=== PATIENT | male | born 1985 | race African-American/Black ===

== ENCOUNTER 2021-06-13 02:25 | Emergency (ER) | payer SELFPAY ==
[~2021-06-13] VITALS: Ht 195.6 cm; Wt 90.0 kg
[2021-06-13 02:50] VITALS: BP 147/64
[2021-06-13] MEDS ORDERED: SULF1TAB24 PO (02:58)
--- NOTE | 2021-06-13 02:58 | PHYS DOC ---
General Adult EDM: Chief Complaint: ABSCESS HPI: HPI: 36-year-old male presents with abscess of the left upper lip. For the last 2 days, this has been getting larger. He has had some drainage but not very much. Patient's never had an abscess before. He has no other complaints this time. Review of Systems: Review of Systems: Constitutional: Denies fever or chills Eyes: Denies change in visual acuity HENT: Denies nasal congestion or sore throat Respiratory: Denies cough or shortness of breath Cardiovascular: Denies chest pain or edema GI: Denies abdominal pain, nausea, vomiting, bloody stools or diarrhea : Denies dysuria Musculoskeletal: Denies back pain or joint pain Integument: Abscess Neurologic: Denies headache, focal weakness or sensory changes Endocrine: Denies polyuria or polydipsia Lymphatic: Denies swollen glands Psychiatric: Denies depression or anxiety Allergies: Allergies: Allergies Coded Allergies Type Severity Reaction Last Updated Verified No Known Drug Allergies 06/13/21 No Physical Exam: PE: Constitutional: Well developed, well nourished, no acute distress, non-toxic appearance. [] HENT: Normocephalic, atraumatic, bilateral external ears normal, oropharynx moist, no oral exudates, nose normal. [] Eyes: PERRLA, EOMI, conjunctiva normal, no discharge. [] Neck: Normal range of motion, no tenderness, supple, no stridor. [] Cardiovascular:Heart rate regular rhythm, no murmur [] Lungs & Thorax: Bilateral breath sounds clear to auscultation [] Abdomen: Bowel sounds normal, soft, no tenderness, no masses, no pulsatile masses. [] Skin: 1 cm erythematous warm area of the left upper lip with draining abscess and scabbing [] Back: No tenderness, no CVA tenderness. [] Extremities: No tenderness, no cyanosis, no clubbing, ROM intact, no edema. [] Neurologic: Alert and oriented X 3, normal motor function, normal sensory function, no focal deficits noted. [] Psychologic: Affect normal, judgement normal, mood normal. [] EKG: EKG: [] Radiology/Procedures: Radiology/Procedures: [] Heart Score: C/O Chest Pain: N/A Risk Factors: Risk Factors: DM, Current or recent (<one month) smoker, HTN, HLP, family history of CAD, obesity. Risk Scores: Score 0 - 3: 2.5% MACE over next 6 weeks - Discharge Home Score 4 - 6: 20.3% MACE over next 6 weeks - Admit for Clinical Observation Score 7 - 10: 72.7% MACE over next 6 weeks - Early Invasive Strategies Course & Med Decision Making: Course & Med Decision Making Pertinent Labs and Imaging studies reviewed. (See chart for details) As I was evaluating the wound, he began to have spontaneous drainage. An I&D was not necessary. I expressed purulent material from the wound. I will place the patient on Bactrim for 7 days. We will give the first dose in the ER. He is stable for discharge at this time. [] Dragon Disclaimer: Phillip Disclaimer: This electronic medical record was generated, in whole or in part, using a voice recognition dictation system. Departure Departure: Impression: Primary Impression: Facial abscess Disposition: HOME / SELF CARE / HOMELESS Condition: STABLE Referrals: PCP,NO (PCP) Patient Instructions: Abscess, [id number] Scripts Sulfamethoxazole/Trimethoprim (BACTRIM DS TABLET) 1 Each Tablet 1 TAB PO BID for cellulitis for 7 Days, #14 TAB 0 Refills Prov: JILLIAN STINSON DO 06/13/21 JILLIAN STINSON DO Jun 13, 2021 02:58
[2021-06-13] MEDS ORDERED: SMZ/TMP 800/160MG TABLET. PO ONE (03:30)
== END 2021-06-13 03:07 | disposition home or self-care (01) ==
LOC: ER 02:25
DX: L02.01 Cutaneous abscess of face (principal); K13.0 Diseases of lips
CPT/HCPCS: 99283